=== PATIENT | male | born 2005 | race Caucasian/White ===

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

== ENCOUNTER 2024-06-21 16:10 | Emergency (ER) | payer OTHER, SELFPAY ==
[2024-06-21 16:17] VITALS: BP 116/76; PULSE 105; RESP 18; TEMP 36.4; O2SAT 97; BMI 29.3
--- OUTSIDE RECORDS SUMMARY | 2024-06-21 16:58 | XMS_ITS | Clinical Summary ---
Author Organization [facility] Address [place], [place] [address] Care Team Providers Care Liner Worker Name Role Phone Pcp, No Primary Care Provider Unavailabl e Allergies Active Allergy Reactions Criticality Noted Date Comments Pollen Extracts Shortness Of Breath High 03/28/2016 Medications Medication Sig Dispensed Refills Start Date End Date Status guanFACINE (INTUNIV ER) 4 mg Extended-Release tabletIndications:GA D (generalized anxiety disorder),ADHD (attention deficit hyperactivity disorder), combined type TAKE 1 TABLET(4 MG) BY MOUTH EVERY DAY 90 Tablet 1 05/18/2024 Active venlafaxine (Effexor XR) 150 mg Extended-Release capsuleIndications:G AD (generalized anxiety disorder),Opposition al defiant disorder,Adjustment disorder with mixed anxiety and depressed mood Take 1 Capsule (150 mg) by mouth once daily with a meal. Take with a 75 milligrams pill for total daily dose of 225 milligrams 30 Capsule 1 05/18/2024 Active venlafaxine (EFFEXOR XR) 75 mg cp24 Extended-Release capsuleIndications:G AD (generalized anxiety disorder),Opposition al defiant disorder,Adjustment disorder with mixed anxiety and depressed mood Take 1 Capsule (75 mg) by mouth once daily with a meal. Take with a 150 milligrams for total daily dose of 225 milligrams 90 Capsule 1 05/18/2024 Active Active Problems Problem Noted Date Diagnosed Date [...] Date Controlled substance agreement signed 04/02/2017 04/30/2023 Overview (04/02/2017): Signed Dr Mehreen Adair 2016 Psychiatry Encounters Date Type Department Care Team Description 05/18/2024 11:30 AM CDT Office Visit [facility] [address] [place] [address] Daysi Brandt MD Medication Management (Intuniv/Effexor) 05/18/2024 Travel 04/24/2024 Telephone [facility] [address] [place] [address] Daysi Brandt MD Medication Management 03/26/2024 Refill [facility] [address] [place] [address] Daysi Brandt MD Refill Request (Venlafaxine) from Last 3 Months Immunizations Name Administration Dates Next Due AMB Influenza, IIV3 (Age >=3 years) Preserve Free (Flu Clinic Only) 06/29/2011 AMB Influenza, IIV3 (Age >=3 years)(Flu Clinic Only) 07/06/2010 AMB Influenza, IIV4 PF (=>6 mos Flulaval,Fluzone Fluarix)(Flu Clinic Only) 07/06/2020,05/31/2017,05/24/2014 DTP 02/21/2006, 5,03/08/2005,12/11 DTaP-IPV (Kinrix) 04/20/2010 HIB-HepB (Comvax) 03/08/2005,2004 Hepatitis A (Peds) 08/26/2018,04/09/2017 Hepatitis B (Peds) 07/23/2005,2004 Hib Conjugate, Unspecified 02/21/2006,2004 INFLUENZA, IIV3 PF (AGE >= 6 MO) 05/18/2024 Inactivated Polio Vaccine 07/23/2005,03/08/2005, 2004 Influenza A (H1N1), Inactivated 07/01/2009 Influenza, IIV3 (Age >=3 years) 06/08/20 13,05/18/2012,04/29/2009,06/03 Influenza, IIV4 06/21/2023,,05/05/2018,05/31,05/14/2016,06/27/2015,05/24/2014 Influenza, IIV4 (=>6mos) MDV 06/11/2019 Influenza,CCIIV4 PRESERV FREE 07/06/2020 MENINGOCOCCAL VACCINE 2 VIAL [id number] (MENVEO) 01/02/2021,04/09/2017 MMR 04/20/2010,11/07/2005 Pneumococcal conj 7-Valent (Prevnar 7) 0 02/21/2006,05/10/2005,03/08/2005,12/11 Tdap 04/19/2024,04/09/2017 Varicella Vaccine 04/20/2010,11/07/2005 Family History Medical History [...] PHQ-2 Answer Date Recorded PHQ-2 TOTAL SCORE 4 05/18/2024 Social Connections Answer Date Recorded Do you often feel lonely or isolated from those around you? 0 07/16/2023 Financial Resource Strain Answer Date R ecorded Difficulty of Paying Living Expenses 3 07/16/2023 Difficulty of Paying Living Expenses Not on file 07/16/2023 Food Insecurity Answer Date Recorded Do you worry your food will run out before you are able to buy more? 1 07/16/2023 Transportation Needs Answer Date Record ed Does lack of transportation keep you from medica l appointments? 1 07/16/2023 Does lack of transportation keep you from work, meetings or getting things that you need? 2 07/16/2023 Housing Stability Answer Date Recorded What is your housing situation today? 1 07/16/2023 Sex and Gender Information Value Date Recorded Sex Assigned at Not on file Gender Identity Not on file Sexual Orientation Not on file Obstetrics History Last Filed Vital Signs Vital Sign Reading Time Taken Comments Blood Pressure 111/70 05/18/2024 11:47 AM CDT Pulse 85 05/18/2024 11:47 AM CDT Temperature 37.3 ??C (99.1 ??F) 01/30/2021 5:26 PM CD T Respiratory Rate 20 06/12/2017 10:12 AM CDT Oxygen Saturation 97% 05/18/2024 11:47 AM CDT Inhaled Oxygen Concentration - - Weight 93.9 kg (207 lb 1.6 oz) 05/18/2024 11:47 AM CDT Height 177.5 cm (5' 9.88) 05/18/2024 11:47 AM C DT Body Mass Index 29.82 05/18/2024 11:47 AM CDT Plan of Treatment Health Maintenance Due Date Last Done Comments HIV for age 15-65 2019 HPV series for age 9-26 (1 - Male 3-dose series) 2019 Well Child Check for age 3-20 03/14/2021 03/14/2020, 08/26/2018, 04/09/2017, Additional history exists Hepatitis C screening for age 18-79 2022 COVID-19 vaccine series ( season) 2024 BMI (ht and wt on same day) for age 18+ 05/18/2025 05/18/2024, 07/16/2023, 04/30/2023 Depression screening for age 12+ 05/18/2025 05/18/2024, 12/26/2023, 08/29/2023, Additional history exists Tetanus booster 04/19/2034 04/19/2024, 04/09/2017 Pneumococcal series for age 6-64 Aged Out 02/21/2006, 05/10/2005, 03/08/2005, Additional history exists No longer eligible based on patient's age to complete this topic Meningococcal series for age 11-21 Completed 01/02/2021, 04/09/2017 Tdap Completed 04/19/2024, 04/09/2017 Influenza for age 9-49 Completed , 06/21/2023, 08/01/2022, Additional history exists Care Teams Liner Worker Relationship Specialty Start Date End Date Pcp, No . PCP - General 06/08/22
--- OUTSIDE RECORDS SUMMARY | 2024-06-21 16:58 | XMS_ITS | Clinical Summary ---
Author Organization [facility] Address [address] [address] Phone Care Team Providers Care Stained Glass Glazier Name Role Phone Elsewhere, Pcp Primary Care Provider Unavailabl e Allergies No known active allergies Medications albuterol (PROVENTIL, VENTOLIN) (2.5 MG/3ML) 0.083% nebulizer solution 3 mL three times a day. 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 Gender Identity Not on file Sexual Orientation Not on file Obstetrics History Growth Chart Information Age Height Weight Cmhvho-enp-nizc th Percentile BMI Percentile Head Circum Head Circum Percentile Date 6 years 130.8 cm (4' 3.5) 27.2 kg (60 lb) 57.40%* 2011 * [facility] (Boys, 2-20 Years) Last Filed Vital Signs [...] Health Maintenance Due Date Last Done Comments CHILD AND TEEN CHECKUP AGE 3 -20 YRS 2007 DTaP,Tdap,and Td Vaccines (Standing Order) (1 - Tdap) 2011 HPV Vaccine (Standing Order) (1 - Male 3-dose series) 2019 Hepatitis B Vaccine (Standin g Order) (1 of 3 - 19+ 3-dose series) 2023 PERTUSSIS (Standing Order) 2023 TETANUS (Standing Order) 2023 COVID-19 Vaccine (2023-2 5 season) 2024 Influenza Vaccine Seasonal (Standing Order) (#1) 2024 Pneumococcal/PCV20 Vaccine: Pediatrics (2-5 yrs) and At-Risk Patients (6-64 yrs) (Standing Order) Aged Out No longer eligible b ased on patient's age to complete this topic Insurance [facility] Care Teams Stained Glass Glazier Relationship Specialty Start Date End Date Elsewhere, Pcp PCP - General 04/01/12
--- OUTSIDE RECORDS SUMMARY | 2024-06-21 16:58 | XMS_ITS | Continuity of Care Document ---
Author Name [facility] Organization [facility] Care Team Providers Care Product Inspection Coordinator Name Role Phone [facility] Unavailable Unavailable Medications Combined list of outpatient medications from Department of Defense and Veterans Affairs facilities.Medications provided include 1) outpatient medications from the last 15 months, and 2) patient-reported medications. Medication Details Route Status Patient Instructions Prescription Expires Prescription Number Last Dispense Date Ordering Provider Order Date Order Qty Source GUANFACINE HCL ER (GUANFACINE HCL), 4 MG, TAB ER 24H, ORAL, ACT[employer]IS [employer]ARMA,, 100 ea. BOTTLE Active [id number] 2023 90 Pharmac y Data Transac tion Service Facilit y GUANFACINE HCL ER (GUANFACINE HCL), 4 MG, TAB ER 24H, ORAL, ACTAVIS [employer]ARMA,, 100 ea. BOTTLE Cancele d [id number] : 2023 0 Pharmac y Data Transac tion Service Facilit y GUANFACINE HCL ER (GUANFACINE HCL), 4 MG, TAB ER 24H, ORAL, ACTAVIS PHARMA,, 100 ea. BOTTLE Active [id number] 2023 90 Pharmac y Data Transac tion Service Facilit y GUANFACINE HCL ER (GUANFACINE HCL), 4 MG, TAB ER 24H, ORAL, ACTAVIS PHARMA,, 100 ea. BOTTLE Active [id number] 4 2023 90 Pharmac y Data Transac tion Service Facilit y VENLAFAXINE HCL ER (VENLAFAXIN E HCL), 150 MG, CAP ER 24H, ORAL, [employer], 90 ea. BOTTLE Active [id number] 4 2023 90 Pharmac y Data Transac tion Service Facilit y VENLAFAXINE HCL ER (VENLAFAXIN E HCL), 37.5 MG, CAP ER 24H, ORAL, [employer], 90 ea. BOTTLE Active [id number] 2023 30 Pharmac y Data Transac tion Service Facilit y VENLAFAXINE HCL ER (VENLAFAXIN E HCL), 75 MG, CAP ER 24H, ORAL, AUR[employer]ARM, 90 ea. BOTTLE Active [id number] 2023 30 Pharmac y Data Transac tion Service Facilit y VENLAFAXINE HCL ER (VENLAFAXIN E HCL), 75 MG, CAP ER 24H, ORAL, A[employer]ARM, 90 ea. BOTTLE Active [id number] 2023 30 Pharmac y Data Transac tion Service Facilit y VENLAFAXINE HCL ER (VENLAFAXIN E HCL), 75 MG, CAP ER 24H, ORAL, AUR[employer]ARM, 90 ea. BOTTLE Cancele d [id number] : 2023 0 Pharmac y Data Transac tion Service Facilit y VENLAFAXINE HCL ER (VENLAFAXIN E HCL), 75 MG, CAP ER 24H, ORAL, [employer], 90 ea. BOTTLE Active [id number] 2023 30 Pharmac y Data Transac tion Service Facilit y Immunizations Combined list of available immunizations from the Department of Defense and Veterans Affairs facilities. Immunization Series Date Given Administered By Site Reaction Lot Number CVX Code Drug Surplus Property Disposal Agent Status Comments Source Influenza, injectable, MDCK, preservative free, quadrivalent 2019 [place], () Not Given Influenza , injectabl e, MDCK, preservat jess free, quadrival ent DoD Social History Combined list of available smoking, tobacco, and other social history from Department of Defense and Veterans Affairs facilities. Social History Type Response Date Comment Sour e This section is an empty social history section. DoD
--- NOTE | 2024-06-21 17:09 | ED_ITS ---
HPI - Psych General Date Seen: 06/21/24 Chief Complaint: Psychiatric Problem/Disorder Stated Complaint: mental health issues Time Seen by Provider: 06/21/24 16:23 Source: patient Mode of arrival: ambulatory Limitations: no limitations History of Present Illness HPI Narrative: Patient is a 18-year-old gentleman who presents here with mental health concerns, today he went and all, by overdosing on melatonin. He when I asked him why this was, he says this constellation of things, his girlfriend is not supporting him, in that she is not coming out here from [place]. He is unable to find a job he is living with his parents, times or tough, anniversary of his other friends suicide. He had told his parents that he is coming here, and his mother early in the week was trying to set him up with counseling but that is not to later in the week, he does not have a counselor, he does carry a diagnosis of depression, and tells me that when he was in middle school he did try to kill himself. He was seen in the emergency room but he was never hospitalized for this. Family history depression in the family. Feels like his life situation will not change, Does use daily marijuana mostly to help him sleep, there is also occasional use of alcohol but no other drugs. complaint: suicidal ideation and feels depressed Onset (ago): day(s) Duration: constant and getting worse History of same: Yes Relieving factors: none Associated psychiatric symptoms: depression and suicidal ideation Associated symptoms: insomnia Treatments prior to arrival: none If self harm: admits thoughts of self harm and has plan Related Data Previous Rx's ?Medication ?Instructions ?Recorded escitalopram oxalate 20 mg tablet 20 mg PO QDAY #90 tabs 08/01/22 guanfacine 4 mg tablet,extended 4 mg PO QDAY #90 tabs 08/01/22 release 24 hr omeprazole 20 mg capsule,delayed 20 mg PO QDAY #30 caps 05/05/24 release Allergies Allergy/AdvReac Type Severity Reaction Status Date / Time pollen extracts Allergy Verified 05/05/24 17:02 Review of Systems Status of ROS: Reports: 10 or more systems reviewed and unremarkable except as noted in History and below [facility] Medical History Sleep concern ?Z76.89 - Persons encountering health services in other specified circum[place] k[place] (ICD-10) Sensory disorder ?R20.9 - Unspecified disturbances of skin sensation (ICD-10) Allergic rhinitis ?J30.9 - Allergic rhinitis, unspecified (ICD-10) Oppositional defiant disorder of childhood or adolescence ?F91.3 - Oppositional defiant disorder (ICD-10) CELIA (generalized anxiety disorder) ?F41.1 - Generalized anxiety disorder (ICD-10) Depression ?F32.A - Depression, unspecified (ICD-10) Family History Mother Anxiety and depression Hypothyroidism Maternal Grandfather High blood pressure Lung cancer Paternal Grandfather Asthma Social History Smoking Status: Never smoker How often do you have a drink containing alcohol: 2-4 times a month AUDIT-C Alcohol total score: 2 Non-prescribed substance use: marijuana (any form) Little interest or pleasure in doing things: several days Feeling down, depressed, or hopeless: several days service: No Exam Narrative: Exam Narrative: On examination in room 2 he is in no apparent distress, he has significant anhedonia, and a bit of a flat affect, no speech difficulty, there is no flight of ideas, and no hallucinations either visual, auditory, or sensory. Pupils equal round reactive to light there is no scleral icterus redness is TMs are normal his oropharynx is normal his neck is supple full range of motion, chest is clear bilaterally no wheezing crackles noted his heart sounds are normal his thyroid is midline palpable not enlarged, abdominal exam does not reveal any tenderness on palpation some mild striae, no CVA tenderness moves all extremities independently well, no edema. Const: Vital Signs, click to edit/add: Vital Signs - 24 hr 06/21/24 16:17 06/21/24 19:38 Temperature 97.5 F L Pulse Rate [Pulse Oximeter] 105 H 93 Respiratory Rate 18 20 Blood Pressure [Ri ght Upper Arm] 116/76 110/80 Pulse Oximetry 97 95 Oxygen Delivery Me thod Room Air Room Air Documenting provider has reviewed patient's vital signs: yes Course Course ED Course: Patient remains stable in the emergency room, he is voluntary. In review of the clinical examination, history, laboratory works, I feel this is a low probability that this is caused from a medical issue. I believe more likely this from a psychiatric issue. He is medically cleared for admission to a psychiatric facility Vital Signs Vital signs: Initial Vital Signs Temperature 97.5 F L 06/21/24 16:17 Temperature Source Oral 06/21/24 16:17 Pulse Rate 105 H 06/21/24 16:17 Pulse Rhythm Regular 06/21/24 16:17 Respiratory Rate 18 06/21/24 16:17 Blood Pressure 116/76 06/21/24 16:17 Blood Pressure Mean 89 06/21/24 16:17 Blood Pressure Position Sitting 06/21/24 16:17 Pulse Oximetry 97 06/21/24 16:17 Oxygen Delivery Method Room Air 06/21/24 16:17 Vital Signs Temperature 97.5 F L 06/21/24 16:17 Pulse Rate 105 H 06/21/24 16:17 Respiratory Rate 18 06/21/24 16:17 Blood Pressure 116/76 06/21/24 16:17 Pulse Oximetry 97 06/21/24 16:17 Oxygen Delivery Method Room Air 06/21/24 16:17 Temperature 97.5 F L 06/21/24 16:17 Pulse Rate 93 06/21/24 19:38 Respiratory Rate 20 06/21/24 19:38 Blood Pressure 110/80 06/21/24 19:38 Pulse Oximetry 95 06/21/24 19:38 Oxygen Delivery Method Room Air 06/21/24 19:38 MDM - Psych MDM Narrative Medical decision making narrative: Differential diagnosis includes but is not limited life-threatening diagnosis is of severe depression with suicidal plan, chemical intoxication with suicidal ideation and risk of self-harm, schizoaffective disorder with risk of self-harm, bipolar disorder with severe depressive phase and risk of self-harm, personality disorder with risk of self-harm, depression due to hyperthyroidism, metabolic derangement, or CONTENT EDITOR abnormality Differential Diagnosis Differential diagnosis: Likely acute psychosis, chronic schizophrenia, suicidal ideation, bipolar disorder, depression, drug-induced psychotic disorder and acute anxiety Medical Records Attestation: I reviewed the patient's medical records. Lab Data Attestation: I reviewed the patient's lab results. Lab results narrative: Laboratory tests are normal. He does have a slightly elevated bilirubin which is consistent Gilbert syndrome and benign. Labs: Lab Results 06/21/24 06/21/24 06/21/24 Range/Units 16:45 16:58 17:16 WBC 10.84 (4.50-11.00) K/uL RBC 5.00 (4.30-5.90) m/uL Hgb 14.5 (13.5-17.5) gm/dL Hct 45.0 (37.0-53.0) % MCV 90 (80-100) fL MCH 29 (26-34) pg MCHC 32 (32-36) gm/dL RDW Coeff of Deo 12.6 (11.5-15.5) % Plt Count 372 (140-440) K/uL Neut % (Auto) 78.1 H (42.0-72.0) % Lymph % (Auto) 12.1 L (20-44) % Lares % (Auto) 6.7 (0.0-11.0) % Eos % (Auto) 2.8 (0.0-7.0) % Baso % (Auto) 0.2 (0.0-3.0) % Neut # (Auto) 8.50 H (1.7-7.0) K/uL Lymph # (Auto) 1.30 (0.90-2.90) K/uL Lares # (Auto) 0.70 (0.00-0.90) K/UL Eos # (Auto) 0.30 (0.00-0.50) K/uL Baso # (Auto) 0.02 (0.00-0.30) K/uL Abs Immat Gran (auto) 0.01 (0.00-0.30) K/uL Imm/Tot Granulo (auto) 0.1 % Sodium 138 (135-149) mmol/L Potassium 3.8 (3.6-5.1) mmol/L Chloride 104 (96-114) mmol/L Carbon Dioxide 25 (20-32) mmol/L Anion Gap 9 (7-15) mEq/L BUN 14 (5-24) mg/dL Creatinine 0.6 (0.6-1.2) mg/dL Estimated Creat Clear 210.91 Estimated GFR 143 ml/min Glucose 95 (60-115) mg/dL Calcium 9.3 (8.7-10.8) mg/dL Total Bilirubin 1.9 H (0.1-1.5) mg/dL Direct Bilirubin 0.3 (0.0-0.5) mg/dL AST 26 (12-35) U/L ALT 34 (4-50) U/L Alkaline Phosphatase 77 (65-260) U/L Total Protein 7.7 (6.0-8.3) g/dL Albumin 4.7 (3.3-5.0) g/dL TSH 0.977 (0.270-4.20) uIU/mL Salicylates < 1.0 L (1.0-10) mg/dL Urine Opiates Screen Negative (Negative) Ur Oxycodone Screen Negative (Negative) Urine Methadone Screen Negative (Negative) Acetaminophen < 10.0 L (10.0-30.0) ug/mL Ur Barbiturates Screen Negative (Negative) U Tricyclic Antidepress Negative (Negative) Ur Phencyclidine Scrn Negative (Negative) Ur Amphetamines Screen Negative (Negative) U Methamphetamines Scrn Negative (Negative) U Benzodiazepines Scrn Negative (Negative) Urine Cocaine Screen Negative (Negative) U Marijuana (THC) Screen POSITIVE A (Negative) Ur Drug Screen Comment See Note SARS-CoV-2 (PCR) Negative SARS-CoV-2 (Negative) Influenza Type A (PCR) Negative PCR FLU A (Negative) Influenza Type B (PCR) Negative PCR FLU B (Negative) RSV (PCR) Negative PCR RSV (Negative) Discharge Plan Discharge Clinical Impression: Suicidal ideation, Depression Prescriptions: No Action omeprazole 20 mg capsule,delayed release(DR/EC) 20 mg PO QDAY Qty: 30 0RF escitalopram oxalate 20 mg tablet 20 mg PO QDAY Qty: 90 0RF guanfacine 4 mg tablet extended release 24 hr 4 mg PO QDAY Qty: 90 0RF Follow Up/Referrals: Juan Jose Pearl MD [Primary Care Provider] -
[2024-06-21 17:23] LABS: Basophils Absolute Auto 0.02 K/uL (0.00-0.30); Basophils Percent Auto 0.2 % (0.0-3.0); Eosinophils Percent Auto 2.8 % (0.0-7.0); Hemoglobin* 14.5 gm/dL (13.5-17.5); Immature Granulocytes Abs Auto 0.01 K/uL (0.00-0.30); Immature Granulocytes Pct Auto 0.1 %; Lymphocytes Percent Auto 12.1 % (20-44); Mean Corpuscular HGB Conc 32 gm/dL (32-36); Mean Corpuscular Hemoglobin 29 pg (26-34); Mean Corpuscular Volume 90 fL (80-100); Monocytes Percent Auto 6.7 % (0.0-11.0); Neutrophils Percent Auto 78.1 % (42.0-72.0); Platelet Count* 372 K/uL (140-440); RDW Coefficient of Variation % 12.6 % (11.5-15.5); White Blood Count* 10.84 K/uL (4.50-11.00)
[2024-06-21 17:26] LABS: Amphetamine Screen Urine Negative (Negative); Barbiturate Screen Urine Negative (Negative); Benzodiazepines Screen Urine Negative (Negative); Cannabinoid Screen Urine POSITIVE (Negative); Cocaine Screen Urine Negative (Negative); Methadone Screen Urine Negative (Negative); Methamphetamines Screen Urine Negative (Negative); Opiate Screen Urine Negative (Negative); Oxycodone Screen Urine Negative (Negative); Phencyclidine Screen Urine Negative (Negative); Tricyclic Antidepressant Urine Negative (Negative)
[2024-06-21 17:26] LABS: Slide Review Reflex No
[2024-06-21 17:41] LABS: Albumin* 4.7 g/dL (3.3-5.0); Chloride* 104 mmol/L (96-114); Potassium* 3.8 mmol/L (3.6-5.1); Sodium* 138 mmol/L (135-149)
[2024-06-21 17:43] LABS: Anion Gap 9 mEq/L (7-15); Bilirubin Direct* 0.3 mg/dL (0.0-0.5); Bilirubin Total* 1.9 mg/dL (0.1-1.5); Carbon Dioxide* 25 mmol/L (20-32); Creatinine* 0.6 mg/dL (0.6-1.2); Est. Creatinine Clearance* 210.91; Estimated Glomerular Filt Rate 143 ml/min
[2024-06-21 17:44] LABS: Alanine Aminotransferase* 34 U/L (4-50); Alkaline Phosphatase* 77 U/L (65-260); Aspartate Amino Transferase* 26 U/L (12-35); Blood Urea Nitrogen* 14 mg/dL (5-24); Calcium* 9.3 mg/dL (8.7-10.8); Glucose* 95 mg/dL (60-115); Total Protein* 7.7 g/dL (6.0-8.3)
[2024-06-21 17:45] LABS: Acetaminophen* < 10.0 ug/mL (10.0-30.0); Salicylate* < 1.0 mg/dL (1.0-10)
[2024-06-21 17:55] LABS: PCR FLU A Negative PCR FLU A (Negative); PCR FLU B Negative PCR FLU B (Negative); PCR RSV Negative PCR RSV (Negative); SARS PCR* Negative SARS-CoV-2 (Negative)
[2024-06-21 18:15] LABS: Thyroid Stimulating Hormone* 0.977 uIU/mL (0.270-4.20)
[2024-06-21 19:38] VITALS: BP 110/80; PULSE 93; RESP 20; O2SAT 95
--- NOTE | 2024-06-21 22:22 | ED.NURSE ---
Talk[facility] to nurse at [facility]. Faxed over nursing mental health assessment. Pt was appropriate during interaction and answered all questions.
[2024-06-22 00:14] VITALS: BP 123/73; PULSE 101; RESP 20; O2SAT 96
--- NOTE | 2024-06-22 00:14 | ED.NURSE ---
Agreed to safety plan with mom at bedside. All belongings sent home with pt mom. Pt vitally stable on discharge and declined suicide ideation/ thoughts.
== END 2024-06-22 00:16 | disposition home or self-care (01) ==
PROVIDERS: Emergency Provider Family Medicine; PCP Family Medicine
DX: R45.851 Suicidal ideations (principal); F32.A Depression, unspecified; F84.0 Autistic disorder
CPT/HCPCS: 36415; 80048; 80076; 80143; 80179; 80306; 84443; 85025; 87631; 99283; 99284

== ENCOUNTER 2025-03-02 19:34 | Emergency (ER) | payer OTHER, SELFPAY ==
--- OUTSIDE RECORDS SUMMARY | 2007-11-04 06:04 | XMS_ITS | Continuity of Care Document ---
Author Organization [facility] Address [address] [address] [place] [address] Phone Care Team Providers Care Leather Seasoner Name Role Phone Unavailable Unavailable Unavailable Allergies, Adverse Reactions, Alerts Substance Reaction Status Criticality No Known allergies Medications Medication Instructions Dosage Effective Dates (start - stop) Status Comments Clarinex 2.5 mg/5 mL (0.5 mg/mL) Syrup Take ml by mouth daily (2ml) - Active Prevacid Solutab 15mg Take one tablet by mouth daily - Active Prilosec 20 mg Cap Take one capsule by mouth daily - Active Procedures Procedure Date Offic Cons New/estab Mod-hi 60 08 Advance Directives Directive Yes / No Effective Date File Name No Information Encounters Encounter Description Practice Location Reason(s) For Visit Diagnoses Date Provider Providers Copied on Encounter [facility], [address] [address], [place], [place], [id number], tel:[phone] Pediatric [facility] No Information 8 No Information Offic Cons New/estab Mod-hi 60 [facility], [address] [address], [place], [place], [id number], tel:[phone] Pediatric Clinic Symp Invol Head/neck NecAbdominal Pain, Unspecified 8 No Information Family History Family Member Type Diagnosis Age At Onset Maternal great uncle Problem (finding) Cancer, brain First degree family history Problem (finding) No history of Colon Rectal Cancer First degree family history Problem (finding) Crohn's Maternal aunt Problem (finding) ulcerative colitis First degree family history Problem (finding) No Family history of No history of Colon Polyps Payers Payer name Insurance type Covered green party ID Authoriza tion(s) No Information Social History Type Description Quantity Date Captured Comments Sex Male Smoking Status No Information Chief Complaint And Reason For Visit No Information Reason For Referral Reason For Referral No Information History Of Present Illness Encounter Date Complaint History Of Prese nt Illness No Information Functional Status Date Functional Assessmen t No Information Instructions Date Instruction Additional Infor mation No Information Assessments Type Assessment Date No Information Patient Care Teams Name Effective Dates (start - stop) Status Members No Information
--- OUTSIDE RECORDS SUMMARY | 2007-11-04 06:04 | XMS_ITS | Continuity of Care Document ---
Author Organization [facility] Address [address] [address] [place] [address] Phone Care Team Providers Care Adoption Specialist Name Role Phone Unavailable Unavailable Unavailable Allergies, [...] Diagnoses Date Provider Providers Copied on Encounter [facility], [address] [address], [place], [place], [id number], tel:[phone] Pediatric Clinic No Information 8 No Information Offic Cons New/estab Mod-hi 60 [facility], [address] [address], [place], [place], [id number], tel:[phone] Pediatric Clinic Symp Invol Head/neck NecAbdominal Pain, [...]
--- OUTSIDE RECORDS SUMMARY | 2025-03-02 19:35 | XMS_ITS | Continuity of Care Document ---
Author Name [facility] Organization [facility] Care Team Providers Care Rag Production Worker Name Role Phone [facility] Unavailable Unavailable Medications Combined list of outpatient [...] ORAL, ACTAVIS PHARMA,, 100 ea. BOTTLE Active [id number] 4 2023 90 Pharmac y Data Transac tion Service Facilit y VENLAFAXINE HCL ER (VENLAFAXIN E HCL), 150 MG, CAP ER 24H, ORAL, AUROBINDO PHARM, 90 ea. BOTTLE Active [id number] 4 2023 90 Pharmac y Data Transac tion Service Facilit y VENLAFAXINE HCL ER (VENLAFAXIN E HCL), 75 MG, CAP ER 24H, ORAL, AUROBINDO PHARM, 90 ea. BOTTLE Active [id number] 4 2023 30 Pharmac y Data Transac tion Service Facilit y Immunizations Combined list of available immunizations from the Department of Defense and Veterans Affairs facilities. Immunization Series Date Given Administered By Site Reaction Lot Number CVX Code Drug Chro Status Comments Source Influenza, injectable, MDCK, preservative [...]
--- OUTSIDE RECORDS SUMMARY | 2025-03-02 19:35 | XMS_ITS | Continuity of Care Document ---
Author Name [facility] Organization [facility] Care Team Providers Care Report Specialist Name Role Phone [facility] Unavailable Unavailable Medications Combined list of outpatient [...] ORAL, ACTAVIS PHARMA,, 100 ea. BOTTLE Active [id number] 4 2023 90 Pharmac y Data Transac tion Service Facilit y VENLAFAXINE HCL ER (VENLAFAXIN E HCL), 150 MG, CAP ER 24H, ORAL, AUROBINDO PHARM, 90 ea. BOTTLE Active [id number] 4 2023 90 Pharmac y Data Transac tion Service Facilit y VENLAFAXINE HCL ER (VENLAFAXIN E HCL), 75 MG, CAP ER 24H, ORAL, AUROBINDO PHARM, 90 ea. BOTTLE Active [id number] 4 2023 30 Pharmac y Data Transac tion Service Facilit y Immunizations Combined list of available immunizations from the Department of Defense and Veterans Affairs facilities. Immunization Series Date Given Administered By Site Reaction Lot Number CVX Code Drug Customs Investigator Status Comments Source Influenza, injectable, MDCK, preservative [...]
--- OUTSIDE RECORDS SUMMARY | 2025-03-02 19:36 | XMS_ITS | Clinical Summary ---
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 Gender Identity Not on file Sexual Orientation Not on file Obstetrics History Last Filed Vital Signs Vital Sign Reading Time Taken Comments Blood Pressure 99/68 04/01/2012 11:53 AM CDT Pulse 116 04/01/2012 11:53 AM CDT Temperature 38.5 C (101.3 F) 04/01/2012 11:53 AM CDT Respiratory Rate - - Oxygen Saturation - - Inhaled Oxygen Concentration - - Weight 27.2 kg (60 lb) 04/01/2012 11:53 AM CDT Height 130.8 cm (4' 3.5) 04/01/2012 11:53 AM CD T Body Mass Index 15.91 04/01/2012 11:53 AM CDT Plan of Treatment Health Maintenance Due Date Last Done Comments HPV Vaccine (Standing Order) (1 - Male 3-dose series) 2019 Meningococcal B Vaccine (Sta nding Order) (1 of 2 - Standard) 2020 ADULT COMPLETE PHYSICAL AGE 19-21 YRS 2023 Hepatitis B Vaccine (Standin g Order) (1 of 3 - 19+ 3-dose series) 2023 PERTUSSIS (Standing Order) 2023 TETANUS (Standing Order) 2023 Pneumococcal/PCV20 Vaccine: Pediatrics (2-5 yrs) and At-Risk Patients (6-49 yrs) (Standing Order) Aged Out No longer eligible b ased on patient's age to complete this topic [place] Care Teams Chart Collector Relationship Specialty Start Date End Date Elsewhere, Pcp PCP - General 04/01/12
--- OUTSIDE RECORDS SUMMARY | 2025-03-02 19:36 | XMS_ITS | Clinical Summary ---
Author Organization [facility] Address [address] [place] [id number] Care Team Providers Care Dyer Assistant Name Role Phone Daysi Brandt MD Primary Care Provi cayla Allergies Active Allergy Reactions Criticality Noted Date Comments Pollen Extracts Shortness Of Breath High 03/28/2016 Medications guanFACINE ER 4 mg Extended-Release tabletIndication s:CELIA (generalized anxiety disorder),ADHD (attention deficit hyperactivity disorder), combined type TAKE 1 TABLET(4 MG) BY MOUTH EVERY DAY 90 Tablet 1 12/16/19 25 Active venlafaxine 75 mg cp24 Extended-Release capsuleIndicatio ns:CELIA (generalized anxiety disorder),Opposi tional defiant disorder,Adjustm ent disorder with mixed anxiety and depressed mood TAKE 1 CAPSULE BY MOUTH ONCE DAILY WITH MEAL ALONG WITH 150 MG FOR TOTAL DAILY DOSE OF 225 MG 90 Capsule 02/07/20 25 Active venlafaxine 150 mg Extended-Release capsuleIndicatio ns:CELIA (generalized anxiety disorder),Opposi tional defiant disorder,Adjustm ent disorder with mixed anxiety and depressed mood TAKE 1 CAPSULE(150 MG) BY MOUTH DAILY WITH A MEAL 90 Capsule 02/07/20 25 Active venlafaxine (Effexor XR) 150 mg Extended-Release capsuleIndicatio ns:CELIA (generalized anxiety disorder),Opposi tional defiant disorder,Adjustm ent disorder with mixed anxiety and depressed mood Take 1 Capsule (150 mg) by mouth once daily with a meal. Take with a 75 milligrams pill for total daily dose of 225 milligrams 30 Capsule 12/16/19 25 025 Discontinued venlafaxine 75 mg cp24 Extended-Release capsuleIndicatio ns:CELIA (generalized anxiety disorder),Opposi tional defiant disorder,Adjustm ent disorder with mixed anxiety and depressed mood Take 1 Capsule (75 mg) by mouth once daily with a meal. Take with a 150 milligrams for total daily dose of 225 milligrams 90 Capsule 12/16/19 025 Discontinued Active Problems Problem Noted Date Diagnosed Date Adjustment disorder with mixed anxiety and depre ssed mood 08/27/2023 CELIA (generalized anxiety disorder) 04/05/2017 Sensory disorder 06/08/2013 Sleep concern 06/10/2012 ADHD (attention deficit hype ractivity disorder), combined type 05/19/2012 Oppositional defiant disorder of childhood or ad olescence 05/05/2012 Allergic rhinitis, cause unspecified 01/27/2009 Resolved Problems Problem Noted Date Diagnosed Date Resolved Date Controlled substance agreement signed 04/02/2017 04/30/2023 Overview (04/02/2017): Signed Dr Mehreen Adair 2016 Psychiatry Unspecified asthma(493.90) 04/27/2011 0 12/15/2024 Encounters Date Type Department Care Team Description 02/04/2025 Refill [facility] [address] [place] [address] Daysi Brandt MD Refill Request (Venlafaxine) 02/04/2025 Refill [facility] [address] [place] [address] Daysi Brandt MD Refill Request (Venlafaxine, Venlafaxine) 12/15/2024 1:50 PM CDT Office Visit [facility] [address] [place] [address] Daysi Brandt MD Medication Management (Effexor/ Guanfacine ) 12/15/2024 Travel 12/14/2024 Telephone [facility] [address] [place] [address] Daysi Brandt MD Appointment 12/10/2024 Telephone [facility] [address] [place] [address] Daysi Brandt MD Medication Management (Bridge for guanFACINE ER 4 mg Extended-Release tablet) from Last 3 Months Immunizations Immunization Administration Dates Next Due AMB Influenza, IIV3 [...] 06/21/2023, 2,05/05/2018,05/31,05/14/2016,06/27/2015,05/24/2014 Influenza, IIV4 (=>6mos) MDV 06/11/2019 Influenza,CCIIV4 PRESERV [...] PHQ-2 Answer Date Recorded PHQ-2 TOTAL SCORE 3 12/15/2024 Social Connections Answer Date Recorded Do you often feel lonely or isolated from those around you? 4 12/15/2024 Financial Resource Strain Answer Date R ecorded Difficulty of Paying Living Expenses 3 12/15/2024 Difficulty of Paying Living Expenses Not on file 12/15/2024 Food Insecurity Answer Date Recorded Do you worry your food will run out before you are able to buy more? 1 12/15/2024 Transportation Needs Answer Date Record ed Does lack of transportation keep you from medica l appointments? 1 12/15/2024 Does lack of transportation keep you from work, meetings or getting things that you need? 1 12/15/2024 Housing Stability Answer Date Recorded What is your housing situation today? 1 12/15/2024 Utilities Answer Date Recorded Do you have trouble paying f or utilities (for example, heat, electricity, water, phone)? 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 Gender Identity Not on file Sexual Orientation Not on file Obstetrics History Last Filed Vital Signs Vital Sign Reading Time Taken Comments Blood Pressure 94/65 12/15/2024 1:37 PM CDT Pulse 100 12/15/2024 1:37 PM CDT Temperature 37.3 C (99.1 F) 01/30/2021 5:26 PM CDT Respiratory Rate 20 06/12/2017 10:12 AM CDT Oxygen Saturation 98% 12/15/2024 1:37 PM CDT Inhaled Oxygen Concentration - - Weight 85.5 kg (188 lb 6.4 oz) 12/15/2024 1:37 P M CDT Height 177.3 cm (5' 9.8) 12/15/2024 1:37 PM CDT Body Mass Index 27.19 12/15/2024 1:37 PM CDT Plan of Treatment Health Maintenance Due Date Last Done Comments HIV for age 15-65 2019 HPV series for age 9-26 (1 - Male 3-dose series) 2019 Well Child Check for age 3-20 03/14/2021 03/14/2020, 08/26/2018, 04/09/2017, Additional history exists Hepatitis C screening for age 18-79 2022 COVID-19 vaccine series ( season) 2024 Influenza Vaccine (#1) 2025 , 06/21/2023, 08/01/2022, Additional history exists BMI (ht and wt on same day) for age 18+ 12/15/2025 12/15/2024, 05/18/2024, 07/16/2023, Additional history exists Depression screening for age 12+ 12/15/2025 12/15/2024, 05/18/2024, 12/26/2023, Additional history exists Tetanus booster 04/19/2034 04/19/2024, 04/09/2017 Hepatitis B series for 19+ Completed 07/23, 03/08/2005, 2004, Additional history exists Pneumococcal series for age 6-49 Aged Out 02/21/2006, 05/10/2005, 03/08/2005, Additional history exists No longer eligible based on patient's age to complete this topic Meningococcal series for age 11-21 Completed 01/02/2021, 04/09/2017 [place] [id number] Care Teams Dyer Assistant Relationship Specialty Start Date End Date Daysi Brandt MD [address] [place] [address] PCP - General Pediatric 08/24/24
[2025-03-02 19:40] VITALS: BP 120/73; PULSE 82; RESP 18; TEMP 36; O2SAT 97; BMI 25.5
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
== END 2025-03-02 20:47 | disposition home or self-care (01) ==
PROVIDERS: Emergency Provider Family Medicine; PCP Internal Medicine
DX: F43.89 Other reactions to severe stress (principal)
CPT/HCPCS: 99283; 99284